=== PATIENT | female | born 1990 | race Caucasian/White ===

== ENCOUNTER 2016-07-08 17:13 | Emergency (ER) | payer MEDICAID, OTHER ==
[2016-07-08] MEDS ORDERED: NS 0.9% 1000 ML* 1,000 ML IV ONE (17:55)
[2016-07-08] MEDS ORDERED: diPHENhydraMINE IV* 50 MG/ML 1 ml VIAL (BENADRYL) IV ONE (17:55)
[2016-07-08] MEDS ORDERED: Metoclopramide IV* 5 MG/ML 2 ML VIAL IV ONE (17:55)
[2016-07-08 18:04] LABS: Hematocrit 33 % (35-47); Hemoglobin 11.3 g/dl (12.0-16.0); Mean Corpuscular HGB Conc 34 g/dl (31-36); Mean Corpuscular Hemoglobin 30 pg (27-31); Mean Corpuscular Volume 88 fL (80-97); Mean Platelet Volume 8 um3 (7.4-10.4); Red Blood Count 3.77 10^6/ul (4.0-5.4); Red Cell Distribution Width 13 % (10.5-15); White Blood Count 8.2 10^3/ul (3.5-10.8)
[2016-07-08 18:15] LABS: Albumin 3.9 g/dL (3.2-5.2); BUN/Creatinine Ratio 21.2 (8-20); Calcium 9.3 mg/dL (8.6-10.3); EGFR African American 184.8 (>60); EGFR Non-African American 143.7 (>60); Globulin 2.9 g/dL (2-4); Potassium 3.3 mmol/L (3.5-5.0); Total Bilirubin 0.2 mg/dL (0.2-1.0); Total Protein 6.8 g/dL (6.4-8.9)
[2016-07-08 18:24] LABS: Urine Bacteria Absent (Absent); Urine Bilirubin Negative (Negative); Urine Glucose Negative (Negative); Urine Nitrite Negative (Negative)
[2016-07-08] MEDS ORDERED: Potassium Chlor TAB* 20 MEQ TAB.ER PO ONE (19:03)
[2016-07-08 20:05] VITALS: BP 132/68
--- NOTE | 2016-07-08 21:02 | ED ---
Dave Aguilar Billy, scribed for Yonatan Amato MD on 07/08/16 at 1748 . Headache - HPI Summary HPI Summary: Patient is a 25 year-old female coming to [facility] presenting with headache for the last 3 weeks. The pain has been intermittent until the last 2-3 days, when it has become a constant throbbing sensation, radiating to the neck. She has taken tylenol and one dose of ibuprofen with no improvement. She reports associated nausea without vomiting. Denies fevers, chills, blurred vision. She is 3 months ; denies any abnormal vaginal discharge or bleeding. She has a history of migraine headaches during . - History Of Current Complaint Chief Complaint: EDHeadache Stated Complaint: HEADACHE Time Seen by Provider: 07/08/16 17:45 Hx Obtained From: Patient Hx Last Menstrual Period: unknown Onset/Duration: Gradual Onset, Started weeks ago, Worse Since - last 2-3 days Initially Headache Was: Moderate Currently Pain Is: Moderate Timing: Constant - in the last 2-3 days, Intermittent, Lasting: - for 3 weeks Character: Throbbing Radiates to: neck Aggravating Factor: Nothing Allevating Factors: Nothing Associated Signs And Symptoms: Nausea, Neck Pain - Allergies/Home Medications Allergies/Adverse Reactions: Allergies Allergy/AdvReac Type Severity Reaction Status Date / Time No Known Allergies Allergy Verified 05/26/16 15:03 PMH/Surg Hx/FS Hx/Imm Hx Respiratory History: Reports: Hx Asthma Neurological History: Reports: Hx Migraine - during Infectious Disease History: No Infectious Disease History: Reports: Hx of Known/Suspected MRSA Denies: Traveled Outside the [place] in Last 30 Days - Family History Known Family History: Positive: Diabetes, Respiratory Disease - ASTHMA, Other - cancer - Social History Alcohol Use: Rare Hx Substance Use: No Substance Use Type: Reports: None Hx Tobacco Use: Yes Smoking Status (MU): Former Smoker Type: Cigarettes Amount Used/How Often: 1 pack per week Review of Systems Negative: Fever, Chills Negative: Blurred Vision Positive: Nausea. Negative: Vomiting Negative: discharge Positive: Other - RUIZ radiates to neck Positive: Headache All Other Systems Reviewed And Are Negative: Yes Physical Exam - Summary Physical Exam Summary: VITAL SIGNS: Reviewed. GENERAL: Patient is an obese female who is lying comfortable in the stretcher. Patient is not in any acute respiratory distress. HEAD AND FACE: No signs of trauma. No ecchymosis, hematomas or skull depressions. No sinus tenderness. EYES: PERRLA, EOMI x 2, No injected conjunctiva, no nystagmus. No photophobia. EARS: Hearing grossly intact. Ear canals and tympanic membranes are within normal limits. MOUTH: Oropharynx within normal limits. NECK: Supple, trachea is midline, no adenopathy, no JVD, no carotid bruit, no c- spine tenderness, neck with full ROM. No meningeal signs, no Kernig's or brudzinskis signs. CHEST: Symmetric, no tenderness at palpation LUNGS: Clear to auscultation bilaterally. No wheezing or crackles. CVS: Regular rate and rhythm, S1 and S2 present, no murmurs or gallops appreciated. ABDOMEN: Soft, non-tender. No signs of distention. No rebound no guarding, and no masses palpated. Bowel sounds are normal. EXTREMITIES: FROM in all major joints, no edema, no cyanosis or clubbing. NEURO: Alert and oriented x 3. No acute neurological deficits. Speech is normal and follows commands. SKIN: Dry and warm Triage Information Reviewed: Yes Vital Signs On Initial Exam: Initial Vitals Temp Pulse Resp BP Pulse Ox 97.5 F 94 20 137/69 100 07/08/16 17:15 07/08/16 17:15 07/08/16 17:15 07/08/16 17:15 07/08/16 17:15 Vital Signs Reviewed: Yes Diagnostics - Vital Signs Vital Signs Temp Pulse Resp BP Pulse Ox 07/08/16 17:15 97.5 F 94 20 137/69 100 - Laboratory Lab Results: Lab Results 07/08/16 07/08/16 07/08/16 Range/Units 17:42 17:42 18:08 WBC 8.2 (3.5-10.8) 10^3/ul RBC 3.77 L (4.0-5.4) 10^6/ul Hgb 11.3 L (12.0-16.0) g/dl Hct 33 L (35-47) % MCV 88 (80-97) fL MCH 30 (27-31) pg MCHC 34 (31-36) g/dl RDW 13 (10.5-15) % Plt Count 210 (150-450) 10^3/ul MPV 8 (7.4-10.4) um3 Neut % (Auto) 70.0 (38-83) % Lymph % (Auto) 24.2 L (25-47) % [place] % (Auto) 4.3 (1-9) % Eos % (Auto) 1.3 (0-6) % Baso % (Auto) 0.2 (0-2) % Absolute Neuts (auto) 5.7 (1.5-7.7) 10^3/ul Absolute Lymphs (auto) 2.0 (1.0-4.8) 10^3/ul Absolute Monos (auto) 0.4 (0-0.8) 10^3/ul Absolute Eos (auto) 0.1 (0-0.6) 10^3/ul Absolute Basos (auto) 0 (0-0.2) 10^3/ul Absolute Nucleated RBC 0.01 10^3/ul Nucleated RBC % 0.1 Sodium 135 (133-145) mmol/L Potassium 3.3 L (3.5-5.0) mmol/L Chloride 106 (101-111) mmol/L Carbon Dioxide 24 (22-32) mmol/L Anion Gap 5 (2-11) mmol/L BUN 11 (6-24) mg/dL Creatinine 0.52 (0.51-0.95) mg/dL Est GFR ( Amer) 184.8 (>60) Est GFR (Non-Af Amer) 143.7 (>60) BUN/Creatinine Ratio 21.2 H (8-20) Glucose 116 H (70-100) mg/dL Calcium 9.3 (8.6-10.3) mg/dL Total Bilirubin 0.20 (0.2-1.0) mg/dL AST 14 (13-39) U/L ALT 11 (7-52) U/L Alkaline Phosphatase 38 (34-104) U/L Total Protein 6.8 (6.4-8.9) g/dL Albumin 3.9 (3.2-5.2) g/dL Globulin 2.9 (2-4) g/dL Albumin/Globulin Ratio 1.3 (1-3) Urine Color Yellow Urine Appearance Clear Urine pH 6.0 (5-9) Ur Specific [place] 1.021 (1.010-1.030) Urine Protein Negative (Negative) Urine Ketones Trace H (Negative) Urine Blood Negative (Negative) Urine Nitrate Negative (Negative) Urine Bilirubin Negative (Negative) Urine Urobilinogen Negative (Negative) Ur Leukocyte Esterase Trace H (Negative) Urine WBC (Auto) Trace(0-5/hpf) (Absent) Urine RBC (Auto) Trace(0-2/hpf) (Absent) Ur Squamous Epith Cells Present H (Absent) Urine Bacteria Absent (Absent) Urine Glucose Negative (Negative) Urine Ascorbic Acid * H (Negative) Result Diagrams: 07/08/16 17:42 07/08/16 17:42 Lab Statement: Any lab studies that have been ordered have been reviewed, and results considered in the medical decision making process. Re-Evaluation - Re-Evaluation First Eval Re-Evaluation Time: 19:42 Change: Improved Comment: No longer nauseated, RUIZ 1/10. Headache Course/Dx - Course Assessment/Plan: Patient is a 25 year-old female coming [place] [facility] presenting with headache for the last 3 weeks. The pain has been intermittent until the last 2-3 days, when it has become a constant throbbing sensation, radiating to the neck. She has taken tylenol and one dose of ibuprofen with no improvement. She reports associated nausea without vomiting. Denies fevers, chills, blurred vision. She is 3 months ; denies any abnormal vaginal discharge or bleeding. She has a history of migraine headaches during . Bloodwork WNL except for mild anemia, possibly secondary to her , hypokalemia for 3.3, she was given potassium chloride. She was also given IV fluids, Reglan , and Benadryl for migraine RUIZ. After these medications, her symptoms have improved. She is no longer nauseous and RUIZ is only 1/10. Since she is feeling better, she will be dc home to f/u with PCP. She was instructed to continue with Benadryl and Tylenol if she has migraine, continue to have increased intake from water, and to sleep between 8-9 hours a night. She understands and agrees. Therefore she will be discharged home to follow up with PCP. - Diagnoses Differential Diagnosis/HQI/PQRI: Migraine, Sinus Headache, Tension Headache, Viral Syndrome Provider Diagnoses: Headache Discharge - Discharge Plan Condition: Stable Disposition: HOME Patient Education Materials: Migraine Headache (ED) Referrals: [facility] [Outside] The documentation as recorded by the Dave robins Billy accurately reflects the service I personally performed and the decisions made by me, Yonatan Amato MD.
== END 2016-07-08 20:04 | disposition home or self-care (01) ==
LOC: ED 17:13
DX: R51 Headache (principal); Z87.891 Personal history of nicotine dependence; J45.909 Unspecified asthma, uncomplicated; D64.9 Anemia, unspecified
CPT/HCPCS: 36415; 80053; 81003; 81015; 85025; 87086; 96360; 96365; 96374; 96375; 99282; A9270-GY; J1200; J2765

== ENCOUNTER 2016-08-18 12:27 | Emergency (ER) | payer OTHER ==
[2016-08-18 12:59] VITALS: BP 139/65
--- NOTE | 2016-08-18 14:15 | UC ---
FLU HPI - HPI Summary HPI Summary: FEVER, BODYACHES, CHILLS COUGH SINCE TODAY. EIGHT WEEKS 18WKS . SEEN BY PROGRAM ENGINEER AND SENT HERE. - History of Current Complaint Chief Complaint: UCRespiratory Stated Complaint: FEVER 18 WEEKS PREG Time Seen by Provider: 08/18/16 13:10 Hx Obtained From: Patient, Family/Pole Climber Hx Last Menstrual Period: EDC 01/19/17 Onset/Duration: Sudden Onset, Lasting Hours, Still Present Severity Currently: Mild Severity Initially: Mild Pain Intensity: 0 Pain Scale Used: 0-10 Numeric Associated Signs & Symptoms: Positive: F/C, Myalgia Related Hx: Possible Flu/Infectious Exposure - Allergy/Home Medications Allergies/Adverse Reactions: Allergies Allergy/AdvReac Type Severity Reaction Status Date / Time No Known Allergies Allergy Verified 08/18/16 12:59 PMH/Surg Hx/FS Hx/Imm Hx Previously Healthy: Yes Respiratory History Of: Reports: Asthma Neurological History Of: Reports: Migraine - during - Surgical History Surgical History: None - Family History Known Family History: Positive: Diabetes, Respiratory Disease - ASTHMA, Other - cancer - Social History Occupation: Employed Full-time, Student Lives: With Family Alcohol Use: None Substance Use Type: None Smoking Status (MU): Former Smoker Type: Cigarettes Amount Used/How Often: 1 pack per week Household Exposure Type: Cigarettes - Immunization History Most Recent Influenza Vaccination: 04/17/15 Most Recent Tetanus Shot: 06/09/15 Most Recent Pneumonia Vaccination: none Review of Systems Constitutional: Fever, Chills Skin: Negative Eyes: Negative ENT: Negative Respiratory: Negative Cardiovascular: Negative Gastrointestinal: Negative Genitourinary: Negative Motor: Negative Neurovascular: Negative Musculoskeletal: Myalgia Neurological: Negative Psychological: Negative All Other Systems Reviewed And Are Negative: Yes Physical Exam Triage Information Reviewed: Yes Appearance: No Pain Distress, Well-Nourished, Ill-Appearing - MILD Vital Signs: Initial Vital Signs Temp 100.6 F 08/18/16 12:55 Pulse 111 08/18/16 12:55 Resp 16 08/18/16 12:55 BP 139/65 08/18/16 12:55 Pulse Ox 96 08/18/16 12:55 Vital Signs Reviewed: Yes Eye Exam: Normal ENT Exam: Normal ENT: Positive: Normal ENT inspection, Hearing grossly normal, Pharynx normal, TMs normal Dental Exam: Normal Neck exam: Normal Neck: Positive: Supple, Nontender, No Lymphadenopathy Respiratory Exam: Normal Respiratory: Positive: Chest non-tender, Lungs clear, Normal breath sounds, No respiratory distress, No accessory muscle use Cardiovascular Exam: Normal Cardiovascular: Positive: RRR, No Murmur, Pulses Normal, Brisk Capillary Refill Abdominal Exam: Normal Abdomen Description: Positive: Nontender, No Organomegaly Musculoskeletal Exam: Normal Musculoskeletal: Positive: Strength Intact, ROM Intact Neurological Exam: Normal Psychological Exam: Normal Psychological: Positive: Normal Response To Family Skin Exam: Normal Flu Course/Dx - Course Course Of Treatment: FLU SWAB A & B ARE NEGATIVE IN OFFICE; NO TAMIFLU DISPENSED DUE TO CATEGORY C; DISCUSSED THIS WITH PATIENT. ADVISED TO FOLLOW UP WITH ED IF SYMPTOMS CONTINUE, WORSEN, OR IF NEW SYMPTOMS DEVELOP. - Differential Dx/Diagnosis Differential Diagnosis/HQI/PQRI: Broncholiolitis, Influenza, Upper Respiratory Infection Provider Diagnoses: VIRAL SYNDROME Discharge - Discharge Plan Condition: Stable Disposition: HOME Patient Education Materials: Viral Syndrome (ED) Forms: *School Release, *Work Release Referrals: [facility] [Outside] No Primary Care Phys,NOPCP [Primary Care Provider] - Additional Instructions: IF SYMPTOMS WORSEN OR IF NEW SYMPTOMS DEVELOP PLEASE SEEK EVALUATION AT EMERGENCY DEPARTMENT.
== END 2016-08-18 13:44 | disposition home or self-care (01) ==
LOC: UCEAST 12:27
DX: O98.512 Other viral diseases complicating pregnancy, second trimester (principal); B34.9 Viral infection, unspecified; Z3A.18 18 weeks gestation of pregnancy; Z87.891 Personal history of nicotine dependence
CPT/HCPCS: 87502; 99211; G0463

== ENCOUNTER 2016-10-03 08:32 | Emergency (ER) | payer OTHER ==
[2016-10-03 10:01] LABS: Hematocrit 31 % (35-47); Hemoglobin 10.6 g/dl (12.0-16.0); Mean Corpuscular HGB Conc 35 g/dl (31-36); Mean Corpuscular Hemoglobin 31 pg (27-31); Mean Corpuscular Volume 88 fL (80-97); Mean Platelet Volume 8 um3 (7.4-10.4); Red Blood Count 3.46 10^6/ul (4.0-5.4); Red Cell Distribution Width 14 % (10.5-15); White Blood Count 6.6 10^3/ul (3.5-10.8)
[2016-10-03 10:11] LABS: Albumin 3.4 g/dL (3.2-5.2); BUN/Creatinine Ratio 14.3 (8-20); C Reactive Protein 20.35 mg/L (< 5.00); Calcium 8.6 mg/dL (8.6-10.3); EGFR African American 196.3 (>60); EGFR Non-African American 152.7 (>60); Globulin 2.8 g/dL (2-4); Potassium 3.4 mmol/L (3.5-5.0); Total Bilirubin 0.2 mg/dL (0.2-1.0); Total Protein 6.2 g/dL (6.4-8.9)
[2016-10-03 11:21] VITALS: BP 109/64
--- NOTE | 2016-10-04 23:05 | ED ---
Brendan Aguilar Adam, scribed for Steve Vance MD on 10/03/16 at 0901 . HPI Chest Pain - HPI Summary HPI Summary: Pt is a 26 year old female presenting with chest pain. She states that it is not severe but she wants to make sure everything is ok. It is a throbbing pain located in upper left region of her chest. The pain is triggered by sitting up or standing up. When she is lying flat she has no pain, and movement of her extremities does not aggravate the pain. Over the weekend the pt had a 24 -48 hour syndrome of vomiting and diarrhea which is now resolved. She denies fever and spotting. She is 24 weeks into her and states that it has been progressing normally. - History of Current Complaint Chief Complaint: EDChestPainROMI Time Seen by Provider: 10/03/16 08:55 Hx Obtained From: Patient Onset/Duration: Started Hours Ago, Atraumatic, Still Present Timing: Intermittent Initial Severity: Moderate Current Severity: Mild Pain Intensity: 4 Pain Scale Used: 0-10 Numeric Chest Pain Location: Left Anterior Chest Pain Radiates: No Character: Other: - Throbbing Aggravating Factor(s): Position - Sitting up and standing up Alleviating Factor(s): Position - Lying flat Associated Signs and Symptoms: Positive: Negative. Negative: Fever - Allergy/Home Medications Allergies/Adverse Reactions: Allergies Allergy/AdvReac Type Severity Reaction Status Date / Time No Known Allergies Allergy Verified 10/03/16 09:02 PMH/Surg Hx/FS Hx/Imm Hx Respiratory History: Reports: Hx Asthma Neurological History: Reports: Hx Migraine - during Infectious Disease History: Reports: Hx of Known/Suspected MRSA Denies: Traveled Outside the [place] in Last 30 Days - Family History Known Family History: Positive: Diabetes, Respiratory Disease - ASTHMA, Other - cancer - Social History Lives: With Family - Mother Alcohol Use: None Hx Substance Use: No Substance Use Type: Reports: None Hx Tobacco Use: Yes Smoking Status (MU): Former Smoker Type: Cigarettes Amount Used/How Often: 1 pack per week Review of Systems Negative: Fever Positive: Chest Pain Genitourinary: Negative All Other Systems Reviewed And Are Negative: Yes Physical Exam - Summary Physical Exam Summary: heart tones approximately 150 with doppler ultrasound. Triage Information Reviewed: Yes Vital Signs On Initial Exam: Initial Vitals Temp Pulse Resp BP Pulse Ox 97.6 F 95 18 131/55 100 10/03/16 08:34 10/03/16 08:34 10/03/16 08:34 10/03/16 08:34 10/03/16 08:34 Vital Signs Reviewed: Yes Appearance: Positive: Well-Appearing, No Pain Distress Skin: Positive: Warm, Skin Color Reflects Adequate Perfusion, Dry Head/Face: Positive: Normal Head/Face Inspection Eyes: Positive: Normal ENT: Positive: Normal ENT inspection Neck: Positive: Supple, Nontender Respiratory/Lung Sounds: Positive: Clear to Auscultation, Breath Sounds Present Cardiovascular: Positive: RRR Abdomen Description: Positive: Nontender, Soft, Other: - FHT's were about 150 with doppler. Bowel Sounds: Positive: Present Musculoskeletal: Positive: Normal Neurological: Positive: Normal Psychiatric: Positive: Affect/Mood Appropriate Diagnostics - Vital Signs Vital Signs Temp Pulse Resp BP Pulse Ox 10/03/16 08:52 21 10/03/16 08:34 97.6 F 95 18 131/55 100 - Laboratory Lab Results: Lab Results 10/03/16 10/03/16 Range/Units 09:26 09:26 WBC 6.6 (3.5-10.8) 10^3/ul RBC 3.46 L (4.0-5.4) 10^6/ul Hgb 10.6 L (12.0-16.0) g/dl Hct 31 L (35-47) % MCV 88 (80-97) fL MCH 31 (27-31) pg MCHC 35 (31-36) g/dl RDW 14 (10.5-15) % Plt Count 184 (150-450) 10^3/ul MPV 8 (7.4-10.4) um3 Neut % (Auto) 71.3 (38-83) % Lymph % (Auto) 17.9 L (25-47) % [place] % (Auto) 8.7 (1-9) % Eos % (Auto) 1.8 (0-6) % Baso % (Auto) 0.3 (0-2) % Absolute Neuts (auto) 4.7 (1.5-7.7) 10^3/ul Absolute Lymphs (auto) 1.2 (1.0-4.8) 10^3/ul Absolute Monos (auto) 0.6 (0-0.8) 10^3/ul Absolute Eos (auto) 0.1 (0-0.6) 10^3/ul Absolute Basos (auto) 0 (0-0.2) 10^3/ul Absolute Nucleated RBC 0 10^3/ul Nucleated RBC % 0 Sodium 136 (133-145) mmol/L Potassium 3.4 L (3.5-5.0) mmol/L Chloride 105 (101-111) mmol/L Carbon Dioxide 25 (22-32) mmol/L Anion Gap 6 (2-11) mmol/L BUN 7 (6-24) mg/dL Creatinine 0.49 L (0.51-0.95) mg/dL Est GFR ( Amer) 196.3 (>60) Est GFR (Non-Af Amer) 152.7 (>60) BUN/Creatinine Ratio 14.3 (8-20) Glucose 87 (70-100) mg/dL Calcium 8.6 (8.6-10.3) mg/dL Total Bilirubin 0.20 (0.2-1.0) mg/dL AST 15 (13-39) U/L ALT 8 (7-52) U/L Alkaline Phosphatase 42 (34-104) U/L Troponin I 0.00 (<0.04) ng/mL C-Reactive Protein 20.35 H (< 5.00) mg/L Total Protein 6.2 L (6.4-8.9) g/dL Albumin 3.4 (3.2-5.2) g/dL Globulin 2.8 (2-4) g/dL Albumin/Globulin Ratio 1.2 (1-3) Result Diagrams: 10/03/16 09:26 10/03/16 09:26 Lab Statement: Any lab studies that have been ordered have been reviewed, and results considered in the medical decision making process. - EKG 08:44 Cardiac Rate: NL - 93 BPM EKG Rhythm: Sinus Rhythm - Normal - Additional Comments Diagnostic Additional Comments: Troponin I - 0.00 Chest Pain Course/Dx - Course Course Of Treatment: I think this represents a radicular pain. Her W/U was otherwise unremarkable. - Diagnoses Provider Diagnoses: Cervical radiculopathy Discharge - Discharge Plan Condition: Stable Disposition: HOME Patient Education Materials: Cervical Radiculopathy (ED) Referrals: [facility] [Outside] Additional Instructions: Follow up with your Primary Care Provider. Use the [facility] if needed. The documentation as recorded by the Brendan robins Adam accurately reflects the service I personally performed and the decisions made by me, Steve Vance MD.
== END 2016-10-03 11:46 | disposition home or self-care (01) ==
LOC: ED 08:32
DX: M54.12 Radiculopathy, cervical region (principal); R07.9 Chest pain, unspecified; Z87.891 Personal history of nicotine dependence
CPT/HCPCS: 36415; 80053; 84484; 85025; 86140; 93005; 99283

== ENCOUNTER 2016-12-16 09:01 | Emergency (ER) | payer OTHER ==
[2016-12-16 09:31] VITALS: BP 103/99
--- NOTE | 2016-12-16 09:38 | UC ---
Katie Aguilar Salem, scribed for Daisy Montanez MD on 12/16/16 at 0924 . Lower Extremity/Ankle HPI - HPI Summary HPI Summary: Patient is a 26 y/o F who presents to the with injury to left ankle and pain to "top of foot" since yesterday. She states that her foot rolled in while she was carrying her son, but she did not fall (she was wearing flip-flops). She denies numbness or tingling, but reports edema, pain with dorsiextension, and limping. She also denies any pain in her knee or hip. No other injures. She states that she iced injury yesterday, but did not take any medication for pain. She denies any previous injuries to extremity. Pt is and due in 1 month. Pt works on her feet. No ecchymosis. no open wounds. Walking with slight limp in flip flops Patients medication reviewed this visit. - History of Current Complaint Chief Complaint: UCLowerExtremity Stated Complaint: ANKLE INJURY Time Seen by Provider: 12/16/16 09:12 Hx Obtained From: Patient Hx Last Menstrual Period: 03/26/16 ?: Yes Onset/Duration: Gradual Onset, Lasting Days, Still Present Severity Initially: Moderate Severity Currently: Moderate Pain Intensity: 5 Pain Scale Used: 0-10 Numeric Aggravating Factor(s): Ambulation, Other - Dorsiflexion. Alleviating Factor(s): Rest Able to Bear Weight: Yes - Allergies/Home Medications Allergies/Adverse Reactions: Allergies Allergy/AdvReac Type Severity Reaction Status Date / Time No Known Allergies Allergy Verified 10/03/16 09:02 PMH/Surg Hx/FS Hx/Imm Hx Previously Healthy: Yes - Surgical History Surgical History: None - Family History Known Family History: Positive: Diabetes, Respiratory Disease - ASTHMA, Other - cancer - Social History Occupation: Employed Full-time - housekeeping/laundry supervisor Alcohol Use: None Substance Use Type: None Smoking Status (MU): Former Smoker Type: Cigarettes Amount Used/How Often: 1 pack per week Household Exposure Type: Cigarettes - Immunization History Most Recent Influenza Vaccination: 04/17/15 Most Recent Tetanus Shot: 06/09/15 Most Recent Pneumonia Vaccination: none Review of Systems Constitutional: Negative Musculoskeletal: Other: - Left ankle injury: edema and pain. No knee or hip pain. Neurological: Negative - No numbness or tingling. All Other Systems Reviewed And Are Negative: Yes Physical Exam Triage Information Reviewed: Yes Appearance: Well-Appearing, No Pain Distress, Well-Nourished Vital Signs: Initial Vital Signs Temp 98 F 12/16/16 09:05 Pulse 99 12/16/16 09:05 Resp 16 12/16/16 09:05 BP 103/99 12/16/16 09:05 Pulse Ox 99 12/16/16 09:05 Eyes: Negative: Discharge ENT: Positive: Hearing grossly normal Neck: Positive: Supple. Negative: Nuchal Rigidity Respiratory: Positive: No respiratory distress, No accessory muscle use. Negative: Respiratory distress Cardiovascular: Positive: Other: - 2+ DP, PT CBT <2 sec Abdomen Description: Positive: Other: - gravid Musculoskeletal: Positive: Other: - + SLE + flex/ext knee + flex/ext ankle with dorsiextension + mild TTP inferior aspect lateral malleolus left minimal discomfort inferior aspect medial malleolus left No pain achilles No pain tarsals, metatarsals, phalanges No ecchymosis, abrasions mild edema lateral mallelous No crepitus no pain along tib/fib Neurological: Positive: Alert, Other: - + sensation throughout foot Psychological Exam: Normal Skin Exam: Normal Lower Extremity Course/Dx - Course Course Of Treatment: Pt with mild left ankle pain s/p inversion injury yesterday. Pt is 8 months and declining imaing. Pt well appearing with minimal discomfort on exam. will place rayna, crutches, air splint. good support shoes. ice. elevate. APAP. recommend movement toes and ankle. if ongoing pain after period of rest - may require imaging. pt comfortable and in agreement with plan. late for work note written - Differential Dx/Diagnosis Provider Diagnoses: ankle injury, left Discharge - Discharge Plan Condition: Stable Disposition: HOME Patient Education Materials: Ankle Sprain (ED) Forms: *Work Release Referrals: No Primary Care Phys,NOPCP [Primary Care Provider] - Additional Instructions: - Okay to take tylenol 3 time a day for pain. Do NOT take Non-steroidal anti- inflammatory medications (Motrin, Advil, Ibuprofen, Naprosyn, Naproxyn, Aleve, etc) - Wear rayna wrap and air splint for support - Elevate your foot to help with swelling and pain - Okay to apply ice (Wrapped in a towel) 20 minutes at a time, 2-3 times a day - Wear shoes with good support - If you continue to have pain, you may require and xray to check for fracture ( broken bone) - Use crutches until you can walk without a limp Call your doctor or return with questions or concerns The documentation as recorded by the Katie robins Salem accurately reflects the service I personally performed and the decisions made by me, Daisy Montanez MD.
== END 2016-12-16 09:40 | disposition home or self-care (01) ==
LOC: UCEAST 09:01
DX: O26.893 Other specified pregnancy related conditions, third trimester (principal); S99.912A Unspecified injury of left ankle, initial encounter; Z3A.00 Weeks of gestation of pregnancy not specified; X50.1XXA Overexertion from prolonged static or awkward postures, initial encounter; Y93.9 Activity, unspecified; Y92.9 Unspecified place or not applicable; Z87.891 Personal history of nicotine dependence
CPT/HCPCS: 99213; G0463

== ENCOUNTER 2017-01-18 11:19 | Inpatient (IN) | payer OTHER ==
[2017-01-18] MEDS ORDERED: Oxytocin in LR* 20 UNITS/1,000 ML BAG IVPB SCH (12:00)
[2017-01-18 12:26] LABS: Hematocrit 34 % (35-47); Hemoglobin 11.5 g/dl (12.0-16.0); Mean Corpuscular HGB Conc 34 g/dl (31-36); Mean Corpuscular Hemoglobin 30 pg (27-31); Mean Corpuscular Volume 90 fL (80-97); Mean Platelet Volume 8 um3 (7.4-10.4); Red Blood Count 3.81 10^6/ul (4.0-5.4); Red Cell Distribution Width 14 % (10.5-15); White Blood Count 9.4 10^3/ul (3.5-10.8)
[2017-01-18] MEDS ORDERED: OBEPIDURAL* 250 ML ONE (19:53)
[2017-01-18] MEDS ORDERED: Albuterol HFA INHALER* 8 gm MDI INH PRN (21:20)
[2017-01-19] MEDS ORDERED: Famotidine TAB* 20 MG PO PRN (00:16)
[2017-01-19] MEDS ORDERED: Sodium Citrate/Citric Acid* 15 ML UDC PO PRN (00:16)
[2017-01-19] MEDS ORDERED: Phenylephrine IV* 40 MCG/ML 10 ML SYRINGE IV PUSH PRN ×2 (00:16)
[2017-01-19] MEDS ORDERED: OBEPIDURAL* 250 ML EPIDURAL SCH (01:00)
[2017-01-19] MEDS ORDERED: RHO D Immune Globulin (HUMAN)* 300 MCG = 1,500 I.U. INJ IM ONE (01:07)
[2017-01-19] MEDS ORDERED: Witch Hazel PAD* JAR TOPICAL PRN (01:07)
[2017-01-19] MEDS ORDERED: Glycerin ADULT SUPP PR PRN (01:07)
[2017-01-19] MEDS ORDERED: Dibucaine 1% 28.35 GM TUBE PR PRN (01:07)
[2017-01-19] MEDS ORDERED: Oxytocin in LR* 20 UNITS/1,000 ML BAG IVPB SCH (02:00)
[2017-01-19] MEDS: Ibuprofen TAB* 600 MG PO PRN ×4 (03:06→21:45)
[2017-01-19] MEDS: Acetaminophen TAB* 325 MG PO PRN ×2 (07:43→19:50)
[2017-01-19] MEDS ORDERED: Simethicone CHEW TAB* 80 MG PO SCH (08:30)
[2017-01-19] MEDS: Docusate CAP* 100 MG PO SCH ×3 (08:54→21:45)
[2017-01-20] MEDS: Ibuprofen TAB* 600 MG PO PRN ×2 (05:52→12:08)
[2017-01-20 07:07] LABS: Hematocrit 28 % (35-47); Hemoglobin 9.5 g/dl (12.0-16.0); Mean Corpuscular HGB Conc 34 g/dl (31-36); Mean Corpuscular Hemoglobin 30 pg (27-31); Mean Corpuscular Volume 91 fL (80-97); Mean Platelet Volume 9 um3 (7.4-10.4); Red Blood Count 3.14 10^6/ul (4.0-5.4); Red Cell Distribution Width 15 % (10.5-15); White Blood Count 7.5 10^3/ul (3.5-10.8)
[2017-01-20] MEDS ORDERED: Ferrous Gluconate TAB* 324 MG TAB PO SCH (09:00)
[2017-01-20 09:17] VITALS: BP 129/78
[2017-01-20] MEDS: Docusate CAP* 100 MG PO SCH (11:00)
== END 2017-01-20 13:24 | disposition home or self-care (01) | DRG 560 ==
LOC: MCHOBOUT 11:19 → MCHOB 11:20
PROVIDERS: ADMIT Midwife; ATTEND Midwife
PROC: 4A1HX4Z Monitoring of Products of Conception, Cardiac Electrical Activity, External Approach (ICD-10-PCS; principal; 2017-01-18)
PROC: 10907ZC Drainage of Amniotic Fluid, Therapeutic from Products of Conception, Via Natural or Artificial Opening (ICD-10-PCS; 2017-01-18)
PROC: 3E033VJ Introduction of Other Hormone into Peripheral Vein, Percutaneous Approach (ICD-10-PCS; 2017-01-18)
PROC: 10E0XZZ Delivery of Products of Conception, External Approach (ICD-10-PCS; 2017-01-18)
DX: O48.0 Post-term pregnancy (principal); O90.81 Anemia of the puerperium
CPT/HCPCS: 36415; 85025; 85461; 86850; 86870; 86880; 86900; 86901; A9270-GY; J2790

== ENCOUNTER 2017-04-06 06:04 | Day surgery (SDC) | payer OTHER ==
[~2017-04-06 06:04] MED LIST: Buffered Lidocaine 0.9% SYRIN* 5 ML/SYR SYRINGE INTRADERM ONE; Famotidine IV* 10 MG/ML 2 ML (20 mg) IV ONE; Metoclopramide TAB* 10 MG PO ONE
[2017-04-06] MEDS ORDERED: Famotidine IV* 10 MG/ML 2 ML (20 mg) ONE (06:15)
[2017-04-06] MEDS ORDERED: Metoclopramide TAB* 10 MG ONE (06:15)
[2017-04-06] MEDS ORDERED: Buffered Lidocaine 0.9% SYRIN* 5 ML/SYR SYRINGE ONE (06:15)
[2017-04-06] MEDS ORDERED: Bupivacaine 0.25% SDV* 30 ML ONE (07:21)
[2017-04-06] MEDS ORDERED: Bupivacaine 0.5% SDV PF* 30 ML VIAL ONE (07:21)
[2017-04-06] MEDS ORDERED: Midazolam* 1 MG/ML 5 ML VIAL (5 MG) ONE (07:28)
[2017-04-06] MEDS ORDERED: Ketorolac INJ* 30 MG/ML 1 ML VIAL ONE (07:28)
[2017-04-06] MEDS ORDERED: KETAMINE HCL* 50 MG/ML 10 ML VIAL ONE (07:28)
[2017-04-06] MEDS ORDERED: Ondansetron INJ* 2 MG/ML VIAL ONE (07:28)
[2017-04-06] MEDS ORDERED: Dexamethasone IV* 4 MG/ML 1 ML (4 MG) ONE (07:28)
[2017-04-06] MEDS ORDERED: Cisatracurium* 2 MG/ML MDV 5 ML ONE (07:28)
[2017-04-06] MEDS ORDERED: Lidocaine 2% PF * 5 ML VIAL ONE (07:28)
[2017-04-06] MEDS ORDERED: Propofol* 10 MG/ML 20 ML BTL IV PUSH ONE (07:28)
[2017-04-06] MEDS ORDERED: fentaNYL* 50 MCG/ML 2 ML VIAL (100 MCG VIAL) ONE ×2 (07:28→08:33)
[2017-04-06] MEDS ORDERED: Lidocaine 1% MPF wEPI 200,000* 30 ML SDV ONE (07:33)
[2017-04-06] MEDS ORDERED: Mivacurium Chloride* 20 MG/10 ML VIAL IV ONE (08:18)
[2017-04-06] MEDS ORDERED: Ondansetron INJ* 2 MG/ML VIAL IV PRN (08:36)
[2017-04-06] MEDS ORDERED: Levalbuterol 0.63MG/3ML NEB* UNIT OF USE INH PRN (08:36)
[2017-04-06] MEDS ORDERED: fentaNYL* 50 MCG/ML 2 ML VIAL (100 MCG VIAL) IV PRN (08:36)
[2017-04-06] MEDS ORDERED: oxyCODONE/Acetamin 5/325 MG* TAB PO PRN (08:36)
[2017-04-06 09:50] VITALS: BP 127/78
--- NOTE | 2017-04-06 11:33 | OP ---
DATE OF OPERATION: 04/06/17 [facility] DATE OF : [birth year] SURGEON: Jersey Mcduffie MD ANESTHESIOLOGIST: Jadon Del Rosario MD ANESTHESIA: General endotracheal tube. PRE-OP DIAGNOSES: Desires permanent sterilization and removal of Nexplanon. POST-OP DIAGNOSES: Desires permanent sterilization and removal of Nexplanon. OPERATIVE PROCEDURE: Laparoscopic bilateral tubal ligation and removal of Nexplanon. COMPLICATIONS: None. FINDINGS: On laparoscopy, the anterior bladder flap appeared normal. The uterus appeared normal. The right ovary appeared normal. Both tubes appeared normal. The appendix and liver surface were smooth. DESCRIPTION OF PROCEDURE: The patient identified, procedure identified as laparoscopic bilateral tubal ligation. The patient was taken to the operating room, prepped and draped in the usual fashion in dorsal lithotomy position under general anesthesia. A sponge and stick was placed in vagina for insufflation. A small infraumbilical incision was made and a Veress needle was inserted through this. The abdomen was insufflated to 15 mmHg. The Veress needle was removed and the trocar was inserted. Using the Visiport, trocar was removed from the sheath and laparoscope was inserted and above findings were noted. A second incision was made 2 cm above the pubic symphysis in the midline and a trocar was inserted under direct visualization. The right fallopian tube was grasped at the mid portion, followed out to its fimbriated end and fulgurated x3. Care taken to fulgurate the fimbria. Same procedure was carried out on the left after following out to its fimbriated end. Good hemostasis was verified. All instruments were removed from the abdomen. The abdomen was deflated of CO2. The skin was closed with Dermabond. The left arm was then prepped over the Nexplanon site and was draped. A small incision was made over the Nexplanon and dissected down until the capsule was noted. Capsule was grabbed with a hemostat. It was shaved until the actual Nexplanon was visualized and was able to be removed. 1% lidocaine with epi was injected into the site at the end of the procedure for anesthesia. The skin was closed over with again Dermabond and covered with Telfa and then wrapped in Kerlix. The patient returned to recovery room in stable condition. All sponge and instrument counts were correct. [id number]/[facility] #: [id number] [facility]
== END 2017-04-06 10:01 | disposition home or self-care (01) ==
LOC: OR 06:04
PROVIDERS: ATTEND Obstetrics & Gynecology
DX: Z30.2 Encounter for sterilization (principal); Z30.46 Encounter for surveillance of implantable subdermal contraceptive; F17.200 Nicotine dependence, unspecified, uncomplicated; J45.909 Unspecified asthma, uncomplicated
CPT/HCPCS: 81025; A9270-GY; J1100; J1885; J2001; J2250; J2405; J2704; J3010

== ENCOUNTER 2017-05-25 12:37 | Emergency (ER) | payer SELFPAY ==
[2017-05-25 12:52] VITALS: BP 112/58
--- NOTE | 2017-05-25 14:13 | UC ---
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 , lifting pushing and pulling - History of Current Complaint Chief Complaint: UCBackPain Stated Complaint: BACK PAIN Time Seen by Provider: 05/25/17 13:56 Hx Obtained From: Patient Hx Last Menstrual Period: 04/29/17 ?: No Onset/Duration: Gradual Onset, Lasting Days, Still Present Timing: Constant Severity Initially: Moderate Severity Currently: Moderate Pain Intensity: 6 - at night sometimes she cannot sleep Pain Scale Used: 0-10 Numeric Back Pain: Is Discrete @ Character: Aching, Stiffness Aggravating Factor(s): Movement, Bending Alleviating Factor(s): Rest, Position Associated Signs And Symptoms: Positive: Negative - Allergies/Home Medications Allergies/Adverse Reactions: Allergies Allergy/AdvReac Type Severity Reaction Status Date / Time No Known Allergies Allergy Verified 05/25/17 12:52 PMH/Surg Hx/FS Hx/Imm Hx Previously Healthy: Yes - Surgical History Surgical History: None Surgery Procedure, Year, and Place: Tubal Ligation - Family History Known Family History: Positive: Diabetes, Respiratory Disease - ASTHMA, Other - cancer - Social History Occupation: Employed Full-time Lives: With Family Alcohol Use: Occasionally Alcohol Amount: reports one glass wine on weekend Substance Use Type: None Smoking Status (MU): Former Smoker Type: Cigarettes Amount Used/How Often: reports 2 cigs per week (socially) Household Exposure Type: Cigarettes - Immunization History Most Recent Influenza Vaccination: 07/2016 Most Recent Tetanus Shot: 06/09/15 Most Recent Pneumonia Vaccination: none Review of Systems Constitutional: Negative Skin: Negative Eyes: Negative ENT: Negative Respiratory: Negative Cardiovascular: Negative Gastrointestinal: Negative Genitourinary: Negative Motor: Negative Neurovascular: Negative Musculoskeletal: Negative - SI joints R>L, Arthralgia Neurological: Negative Psychological: Negative Is Patient Immunocompromised?: No All Other Systems Reviewed And Are Negative: Yes Physical Exam Triage Information Reviewed: Yes Appearance: Well-Appearing, No Pain Distress, Well-Nourished Vital Signs: Initial Vital Signs Temp 97.0 F 05/25/17 12:48 Pulse 82 05/25/17 12:48 Resp 18 05/25/17 12:48 BP 112/58 05/25/17 12:48 Pulse Ox 99 05/25/17 12:48 Vital Signs Reviewed: Yes Eye Exam: Normal Eyes: Positive: Conjunctiva Clear ENT Exam: Normal ENT: Positive: Normal ENT inspection, Hearing grossly normal, Pharynx normal. Negative: Muffled voice, Hoarse voice Dental Exam: Normal Neck exam: Normal Neck: Positive: Supple, Nontender Respiratory Exam: Normal Respiratory: Positive: Chest non-tender, Lungs clear, Normal breath sounds, No respiratory distress, No accessory muscle use Cardiovascular Exam: Normal Cardiovascular: Positive: RRR, Pulses Normal, Brisk Capillary Refill Abdomen Description: Negative: CVA Tenderness (R), CVA Tenderness (L) Musculoskeletal Exam: Normal Musculoskeletal: Positive: Strength Intact, No Edema, ROM Limited @ - lower back ,twisting Neurological Exam: Normal Psychological Exam: Normal Skin Exam: Normal Back Pain Course/Dx - Course Course Of Treatment: Gentle back and conditioning exercises, pain med follow with pcp - Differential Dx/Diagnosis Provider Diagnoses: Low back pain, sciatic pain Discharge - Discharge Plan Condition: Stable Disposition: HOME Prescriptions: Cyclobenzaprine TAB* [Flexeril 10 MG TAB*] 10 mg PO TID PRN #15 tab PRN Reason: muscle tightness Cyclobenzaprine TAB* [Flexeril 10 MG TAB*] 10 mg PO TID PRN #15 tab PRN Reason: muscle spasm Naproxen [Naproxen 500 mg] 500 mg PO Q12H PRN #28 tab PRN Reason: pain Naproxen [Naproxen 500 mg] 500 mg PO Q12H PRN #28 tab PRN Reason: pain Tramadol HCl [Ultram] 50 mg PO Q8H PRN #20 tab MDD 3 PRN Reason: Pain Tramadol HCl [Ultram] 50 mg PO Q8H PRN #20 tab MDD 3 PRN Reason: pain Patient Education Materials: Sciatica (ED), Core Strengthening Exercises (GEN) , Lower Back Exercises (ED) Forms: *Work Release Referrals: [facility] [place] [facility]IAN REFERRAL [Outside] - 4 Days
== END 2017-05-25 14:32 | disposition home or self-care (01) ==
LOC: UCEAST 12:37
DX: M54.42 Lumbago with sciatica, left side (principal); M54.41 Lumbago with sciatica, right side; Z72.89 Other problems related to lifestyle; Z87.891 Personal history of nicotine dependence
CPT/HCPCS: 99212; G0463

== ENCOUNTER 2017-07-27 10:31 | Emergency (ER) | payer MEDICAID, OTHER ==
[2017-07-27] MEDS ORDERED: Dexamethasone Oral Solution* 1 MG/ML 10 ML UDC (10 MG) PO ONE (12:19)
[2017-07-27 13:02] VITALS: BP 115/70
--- NOTE | 2017-07-27 14:04 | ED ---
Throat Pain/Nasal Congestion - HPI Summary HPI Summary: Patient is an otherwise healthy 26-year-old female who presents to the ED with bilateral throat pain, odynophagia and dysphagia 2 days. She denies any sick contacts. History of strep throat and states this feels similar. She denies any difficulty breathing. Denies fever but endorses some sweats beginning yesterday. Denies any abdominal pain, nausea, vomiting, headache, sinus pressure. She has not been on any antibiotics recently. On arrival strep swab obtained and Monospot obtained. Denies trismus, denies muffled voice. - History of Current Complaint Chief Complaint: EDThroatPain Time Seen by Provider: 07/27/17 11:25 Hx Obtained From: Patient Onset/Duration: Gradual Onset Severity: Moderate Associated Signs And Symptoms: Positive: Dysphagia - Epiglottits Risk Factors Epiglottis Risk Factors: Negative - Allergies/Home Medications Allergies/Adverse Reactions: Allergies Allergy/AdvReac Type Severity Reaction Status Date / Time No Known Allergies Allergy Verified 07/27/17 12:15 PMH/Surg Hx/FS Hx/Imm Hx Previously Healthy: Yes Respiratory History: Reports: Hx Asthma Neurological History: Reports: Hx Migraine - during - Surgical History Surgery Procedure, Year, and Place: Tubal Ligation Hx Anesthesia Reactions: No - never had surgery - Immunization History Hx Pertussis Vaccination: No Immunizations Up to Date: Unable to Obtain/Confirm Infectious Disease History: Yes Infectious Disease History: Denies: Hx Clostridium Difficile, Hx Hepatitis, Hx Human Immunodeficiency Virus (HIV), Hx of Known/Suspected MRSA, Hx Shingles, Hx Tuberculosis, Hx Known/ Suspected VRE, Hx Known/Suspected VRSA, History Other Infectious Disease, Traveled Outside the [place] in Last 30 Days - Family History Known Family History: Positive: Diabetes, Respiratory Disease - ASTHMA, Other - cancer - Social History Occupation: Employed Full-time Lives: With Family Alcohol Use: Occasionally Alcohol Amount: reports one glass wine on weekend Hx Substance Use: No Substance Use Type: Reports: None Hx Tobacco Use: Yes Smoking Status (MU): Former Smoker Type: Cigarettes Amount Used/How Often: reports 2 cigs per week (socially) Review of Systems Constitutional: Negative Negative: Fever, Chills, Fatigue Eyes: Negative Positive: Sore Throat Cardiovascular: Negative Respiratory: Negative Genitourinary: Negative Positive: no symptoms reported, see HPI Neurological: Negative All Other Systems Reviewed And Are Negative: Yes Physical Exam Triage Information Reviewed: Yes Vital Signs On Initial Exam: Initial Vitals Temp Pulse Resp BP Pulse Ox 98.1 F 103 18 125/66 98 07/27/17 10:39 07/27/17 10:39 07/27/17 10:39 07/27/17 10:39 07/27/17 10:39 Vital Signs Reviewed: Yes Appearance: Positive: Ill-Appearing Skin: Positive: Skin Color Reflects Adequate Perfusion Head/Face: Positive: Normal Head/Face Inspection Eyes: Positive: EOMI, JOSÉ LUIS, Conjunctiva Clear ENT: Positive: Pharyngeal erythema, TMs normal, Tonsillar swelling - Bilaterally , Tonsillar exudate - Bilaterally, Uvula midline. Negative: Nasal congestion, Nasal drainage, Trismus, Muffled voice, Hoarse voice, Dental tenderness, Sinus tenderness Neck: Positive: Supple, Enlarged Nodes @ - Bilateral cervical anterior Cardiovascular: Positive: Normal, RRR, Pulses are Symmetrical in both Upper and Lower Extremities Musculoskeletal: Positive: Strength/ROM Intact Neurological: Positive: Speech Normal Psychiatric: Positive: Normal, Affect/Mood Appropriate AVPU Assessment: Alert Diagnostics - Vital Signs Vital Signs Temp Pulse Resp BP Pulse Ox 07/27/17 13:01 98.9 F 100 20 115/70 97 07/27/17 10:39 98.1 F 103 18 125/66 98 - Laboratory Lab Results: Lab Results 07/27/17 07/27/17 07/27/17 Range/Units 12:10 12:12 12:43 Monoscreen Positive H (Negative) Influenza A (Rapid) Negative (Negative) Influenza B (Rapid) Negative (Negative) Group A Strep Rapid Negative (Negative) Lab Statement: Any lab studies that have been ordered have been reviewed, and results considered in the medical decision making process. EENT Course/Dx - Course Course Of Treatment: During the course of treatment the patient is evaluated for bilateral throat pain, odynophagia, dysphagia without difficulty breathing. History of strep throat. She is given Tylenol 650 mg for pain on arrival. On physical examination there is tonsillitis noted with tonsilloliths to the left tonsil with tonsillar exudate and erythema. Uvula is midline and no concern for peritonsillar or tonsillar abscess at this time. Due to dysphasia she is given dexamethasone 12 mg oral solution in the ED. She is given prescription for prednisone 50 mg once daily 5 days. Due to the tonsilloliths and tonsillar exudate she is given penicillin 500 mg twice daily 10 days for a bacterial component which is likely. She is to follow-up with Dr. Wright, ENT for any worsening symptoms. Monospot obtained and positive. Called patient at 2 PM to make aware of the Monospot results as this had not been resulted by the time she had been discharged from the hospital. I have given her symptomatic treatment instructions and encouraged to follow up with PCP regarding positive test. - Diagnoses Provider Diagnoses: Acute tonsillitis, Mononucleosis Discharge - Discharge Plan Condition: Stable Disposition: HOME Prescriptions: Penicillin VK 500 MG TAB(NF) [Penicillin VK 500 mg Tab(NF)] 500 mg PO BID #20 tab MDD 4 predniSONE TAB* [Deltasone TAB*] 50 mg PO DAILY #5 tab MDD 1 Patient Education Materials: Tonsillitis (ED) Referrals: Juan Manuel Wright MD [Medical Doctor] - No Primary Care Phys,NOPCP [Primary Care Provider] - Additional Instructions: Please follow up with ENT for any worsening symptoms Review begin to have difficulty breathing or worsening difficulty with swallowing, especially your saliva, return to the ED immediately Tylenol 650 mg 3 times daily for any discomfort Prednisone 50 mg once daily in the morning Penicillin twice daily for 10 days for tonsillitis Cepacol tabs for discomfort (there are [id number])
== END 2017-07-27 13:01 | disposition home or self-care (01) ==
LOC: ED 10:31
DX: J03.90 Acute tonsillitis, unspecified (principal); B27.90 Infectious mononucleosis, unspecified without complication; F17.210 Nicotine dependence, cigarettes, uncomplicated
CPT/HCPCS: 36415; 86308; 87502; 87651; 99282

== ENCOUNTER 2017-08-25 17:47 | Emergency (ER) | payer OTHER ==
[2017-08-25] MEDS ORDERED: HYDROcodone/ACETAMIN 5-325 MG* 1 TAB PO PRN (18:35)
[2017-08-25] MEDS ORDERED: HYDROcodone/ACETAMIN 5-325 MG* 1 TAB PO ONE (18:49)
[2017-08-25] MEDS ORDERED: Lidocaine 2.5%/Prilocain 2.5%* 5 GM TUBE ONE (18:55)
[2017-08-25] MEDS ORDERED: Lidocaine 2.5%/Prilocain 2.5%* 5 GM TUBE TOPICAL SCH ×3 (19:00)
[2017-08-25 20:02] VITALS: BP 129/80
--- NOTE | 2017-08-25 22:05 | ED ---
Skin Complaint - HPI Summary HPI Summary: Patient is an otherwise healthy 26-year-old female presenting to the ED with a chief complaint of right axillary abscess 3 weeks. 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 She has been applying warm compresses without effect. The abscess measures approximately 4 cm in diameter, extremely tender and erythematous with slight warmth. There is no surrounding cellulitis. She denies any history of hydradenitis but states she gets abscesses often. Denies any fevers, sweats, chills. She endorses small abscesses to the left axilla which are tender, but very small and under the skin. She denies any other symptoms at this time. - History of Current Complaint Chief Complaint: EDRashSkinAbscess Time Seen by Provider: 08/25/17 18:01 Stated Complaint: CYST Hx Obtained From: Patient Hx Last Menstrual Period: 04/29/17 Onset/Duration: Started Days Ago Skin Exposure Onset/Duration: Days Ago Timing: Constant Onset Severity: Moderate Current Severity: Moderate Pain Intensity: 2 Pain Scale Used: 0-10 Numeric Skin Location: Other: - Right axilla Character: Swelling, Pain, Redness, Raised, Painful Aggravating Symptom(s): Nothing Alleviating Symptom(s): Nothing Associated Signs & Symptoms: Negative - Allergy/Home Medications Allergies/Adverse Reactions: Allergies Allergy/AdvReac Type Severity Reaction Status Date / Time No Known Allergies Allergy Verified 07/27/17 12:15 PMH/Surg Hx/FS Hx/Imm Hx Previously Healthy: Yes Respiratory History: Reports: Hx Asthma Neurological History: Reports: Hx Migraine - during - Surgical History Surgery Procedure, Year, and Place: Tubal Ligation Hx Anesthesia Reactions: No - never had surgery - Immunization History Hx Pertussis Vaccination: No Immunizations Up to Date: Unable to Obtain/Confirm Infectious Disease History: No Infectious Disease History: Denies: Hx Clostridium Difficile, Hx Hepatitis, Hx Human Immunodeficiency Virus (HIV), Hx of Known/Suspected MRSA, Hx Shingles, Hx Tuberculosis, Hx Known/ Suspected VRE, Hx Known/Suspected VRSA, History Other Infectious Disease, Traveled Outside the [place] in Last 30 Days - Family History Known Family History: Positive: Diabetes, Respiratory Disease - ASTHMA, Other - cancer - Social History Occupation: Employed Full-time Lives: With Family Alcohol Use: Occasionally Alcohol Amount: reports one glass wine on weekend Hx Substance Use: No Substance Use Type: Reports: None Hx Tobacco Use: Yes Smoking Status (MU): Light Every Day Tobacco Smoker Type: Cigarettes Amount Used/How Often: reports 2 cigs per week (socially) Review of Systems Constitutional: Negative Negative: Fever, Chills, Fatigue, Skin Diaphoresis Eyes: Negative Cardiovascular: Negative Respiratory: Negative Gastrointestinal: Negative Negative: Abdominal Pain, Vomiting, Diarrhea Genitourinary: Negative Positive: no symptoms reported, see HPI Positive: Other - right axilla 4 cm abscess Neurological: Negative All Other Systems Reviewed And Are Negative: Yes Physical Exam Triage Information Reviewed: Yes Vital Signs On Initial Exam: Initial Vitals Temp Pulse Resp BP Pulse Ox 96.9 F 88 16 120/71 98 08/25/17 17:54 08/25/17 17:54 08/25/17 17:54 08/25/17 17:54 08/25/17 17:54 Vital Signs Reviewed: Yes Appearance: Positive: Well-Appearing, Well-Nourished Skin: Positive: Warm, Skin Color Reflects Adequate Perfusion, Other - 4 cm right axillary abscess Head/Face: Positive: Normal Head/Face Inspection Eyes: Positive: EOMI, JOSÉ LUIS, Conjunctiva Clear Neck: Positive: Supple, No Lymphadenopathy Respiratory/Lung Sounds: Positive: Clear to Auscultation, Breath Sounds Present Cardiovascular: Positive: Normal, RRR, Pulses are Symmetrical in both Upper and Lower Extremities Musculoskeletal: Positive: Normal, Strength/ROM Intact Neurological: Positive: Speech Normal Psychiatric: Positive: Normal, Affect/Mood Appropriate Diagnostics - Vital Signs Vital Signs Temp Pulse Resp BP Pulse Ox 08/25/17 20:01 98.5 F 93 16 129/80 98 08/25/17 17:54 96.9 F 88 16 120/71 98 - Laboratory Lab Statement: Any lab studies that have been ordered have been reviewed, and results considered in the medical decision making process. Course/Dx - Course Course Of Treatment: The abscess measures approximately 4 cm in diameter, extremely tender and erythematous with slight warmth. There is no surrounding cellulitis. This appears to be an infectious folliculitis from shaving the underarms. She could also have an early hydradenitis suppurativa. 2 Girard scan , EMLA applied. I waited 20 minutes. Small 0.5 cm linear incision is made to the total length of the abscess. Wound culture obtained. Copious amount white pus and serosanguineous drainage from the area. Probed the abscess cavity with hemostat to break up any loculations, there was no tracking involve. The area did not require packing. 2 2 x 2's placed with a bandage. Irrigated the abscess cavity copiously with isotonic saline solution. Patient will continue with warm compresses to the area and change the bandage in 24 hours. She will return if she is having any fevers, sweats, chills, other signs of infection or worsening pain despite the pain medication given to her. She understands these precautions and voices no concerns at this time. - Diagnoses Provider Diagnoses: Axillary abscess Discharge - Discharge Plan Condition: Stable Disposition: HOME Prescriptions: Hydrocodone/Acetamin 10/325(NF [Girard 10/325 (NF)] 1 tab PO Q6H #12 tab MDD 4 Sulfamethox/Trimethoprim DS* [Bactrim DS 800/160 TAB*] 1 tab PO BID #14 tab MDD 2 Patient Education Materials: Abscess (ED) Forms: *Work Release Referrals: No Primary Care Phys,NOPCP [Primary Care Provider] - Additional Instructions: Moist compresses to the area several times a day Bactrim twice daily 7 days Ibuprofen for any inflammation and pain For any pain not well controlled with ibuprofen, you may use the hydrocodone for pain relief Change the bandage after 24 hours unless you notice seepage Keep the bandage on 2-3 days Continue with moist compresses 2-3 days I recommend looking into laser hair removal
--- NOTE | 2017-08-27 08:55 | PN ---
Progress Note - Progress Note Date of Service: 08/25/17 Note: MRSA and s. aureus positive on wound culture results. placed on bactrim at discharge. patient does have history of MRSA. will wait for final sensitivity results. no further action required at this time.
== END 2017-08-25 20:01 | disposition home or self-care (01) ==
LOC: ED 17:47
DX: L02.411 Cutaneous abscess of right axilla (principal); B95.62 Methicillin resistant Staphylococcus aureus infection as the cause of diseases classified elsewhere; F17.210 Nicotine dependence, cigarettes, uncomplicated
CPT/HCPCS: 10060; 87070; 87077; 87186; 87205; 87640; 87641; 99282; A9270-GY

== ENCOUNTER 2018-03-06 08:46 | Emergency (ER) | payer OTHER ==
[2018-03-06] MEDS ORDERED: Ketorolac INJ* 60 MG/2 ML VIAL IM ONE (09:14)
--- NOTE | 2018-03-06 09:18 | ED ---
Back Pain - HPI Summary HPI Summary: This patient is a 27 year old MF presenting to [facility] with a chief complaint of left lower back pain since last night. The patient rates the pain 5/10 in severity. Patient reports dysuria and chills last night. Patient denies blood in urine, fever, nausea, vomiting, and vaginal discharge. Patient believes it is a UTI because she has had one before and it feels similar. Her LNMP was 2 weeks ago. She has had a tubal ligation. - History of Current Complaint Chief Complaint: EDUrogenitalProblems Stated Complaint: UTI LIKE SYMPTOMS,RT FLANK PAIN Time Seen by Provider: 03/06/18 09:09 Hx Obtained From: Patient Hx Last Menstrual Period: 04/29/17 Onset/Duration: Sudden Onset, Still Present Onset/Duration: Started Days Ago - Last night Timing: Lasting Hours Back Pain Location: Is Discrete @ - Left lower back Severity Initially: Moderate Severity Currently: Moderate Pain Intensity: 6 Pain Scale Used: 0-10 Numeric Associated Signs And Symptoms: Positive: Other - Dysuria, chills. Denies hematuria, nausea, vomiting, and vaginal discharge.. Negative: Fever - Allergies/Home Medications Allergies/Adverse Reactions: Allergies Allergy/AdvReac Type Severity Reaction Status Date / Time No Known Allergies Allergy Verified 03/06/18 09:05 PMH/Surg Hx/FS Hx/Imm Hx Endocrine/Hematology History: Denies: Hx Diabetes Respiratory History: Reports: Hx Asthma Neurological History: Reports: Hx Migraine - during - Surgical History Surgery Procedure, Year, and Place: Tubal Ligation Hx Anesthesia Reactions: No - never had surgery Infectious Disease History: No Infectious Disease History: Denies: Hx Clostridium Difficile, Hx Hepatitis, Hx Human Immunodeficiency Virus (HIV), Hx of Known/Suspected MRSA, Hx Shingles, Hx Tuberculosis, Hx Known/ Suspected VRE, Hx Known/Suspected VRSA, History Other Infectious Disease, Traveled Outside the [place] in Last 30 Days - Family History Known Family History: Positive: Diabetes, Respiratory Disease - ASTHMA, Other - cancer - Social History Occupation: Employed Full-time Lives: With Family Alcohol Use: Occasionally Alcohol Amount: reports one glass wine on weekend Hx Substance Use: No Substance Use Type: Reports: None Hx Tobacco Use: Yes Smoking Status (MU): Light Every Day Tobacco Smoker Type: Cigarettes Amount Used/How Often: reports 2 cigs per week (socially) Review of Systems Positive: Chills. Negative: Fever Negative: Vomiting, Nausea Positive: dysuria. Negative: hematuria, other - vaginal discharge Positive: Other - Left lower back pain All Other Systems Reviewed And Are Negative: Yes Physical Exam - Summary Physical Exam Summary: GENERAL: Patient is a well-developed and nourished F who is lying comfortable in the stretcher. Patient is not in any acute respiratory distress. HEAD AND FACE: Normocephalic EYES: PERRLA, EOMI x 2. EARS: Hearing grossly intact. MOUTH: Oropharynx within normal limits. NECK: Supple, trachea is midline, no adenopathy, no JVD, no carotid bruit. CHEST: Symmetric, no tenderness at palpation LUNGS: Clear to auscultation bilaterally. No wheezing or crackles. CVS: Regular rate and rhythm, S1 and S2 present, no murmurs or gallops appreciated. ABDOMEN: Soft, non-tender. Bowel sounds are normal. No abdominal abnormal pulsations. MUSCULOSKELETAL: Left CVA tenderness EXTREMITIES: Full ROM in all major joints, no edema, no cyanosis or clubbing. NEURO: Alert and oriented x 3. No acute neurological deficits. Speech is normal and follows commands. SKIN: Dry and warm Triage Information Reviewed: Yes Vital Signs On Initial Exam: Initial Vitals Temp Pulse Resp BP Pulse Ox 96.9 F 77 16 124/73 98 03/06/18 09:02 03/06/18 09:02 03/06/18 09:02 03/06/18 09:02 03/06/18 09:02 Vital Signs Reviewed: Yes Diagnostics - Vital Signs Vital Signs Temp Pulse Resp BP Pulse Ox 03/06/18 09:02 96.9 F 77 16 124/73 98 - Laboratory Result Diagrams: 03/06/18 09:20 03/06/18 09:20 Lab Statement: Any lab studies that have been ordered have been reviewed, and results considered in the medical decision making process. Back Pain Course/Dx - Course Assessment/Plan: This patient is a 27 year old MF presenting to [facility] with a chief complaint of left lower back pain since last night. Her labs are unremarkable, but her urine is consistent for a UTI. She does have 3+ blood in her urine, but I believe it is hemorrhagic cystitis. I did discuss the possibliity of a kidney stone with the patient but is less likely based on presentation. I offered to perform an US to rule out kidney stones. 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 Patient will be sent home on Ciproflaxin. I discussed results with patient and she agrees with this plan. She is hemodynamically stable upon discharge. Strict return precautions given and she will otherwise follow up with her PCP. - Diagnoses Provider Diagnoses: UTI (urinary tract infection) Discharge - Sign-Out/Discharge Documenting (check all that apply): Patient Departure - D/C - Discharge Plan Condition: Stable Disposition: HOME Prescriptions: Ciprofloxacin TAB* [Cipro 500 MG TAB*] 500 mg PO BID #14 tab Ibuprofen 800 mg PO TID #21 tablet Patient Education Materials: Urinary Tract Infection in Women (ED) Referrals: No Primary Care Phys,NOPCP [Primary Care Provider] - 3 Days (Follow up with the [facility] in 3 days. TO FIND US We are located on the 3rd floor of [facility]. Park in the front Visitor Lot and enter at the 1st Floor Entrance. From the [facility] 1st floor visitor lobby or 2nd floor main lobby, follow signs to the [facility]. TO SCHEDULE AN APPOINTMENT ) Additional Instructions: RETURN TO THE EMERGENCY DEPARTMENT FOR CHANGING OR WORSENING SYMPTOMS. - Billing Disposition and Condition Condition: STABLE Disposition: Home - Attestation Statements Document Initiated by Fidelia: Yes Documenting Scribe: Bandar Ross Provider For Whom Fidelia is Documenting (Include Credential): Varghese Wiggins MD Scribe Attestation: Bandar Aguilar, scribed for Varghese Wiggins MD on 03/06/18 at 1841. Scribe Documentation Reviewed: Yes Provider Attestation: The documentation as recorded by the Bandar robins accurately reflects the service I personally performed and the decisions made by me, Varghese Wiggins MD
[2018-03-06 09:37] LABS: ABS Basophils 0 10^3/ul (0-0.2); ABS Eosinophils 0.2 10^3/ul (0-0.6); ABS Lymphocytes 1.6 10^3/ul (1.0-4.8); ABS Monocytes 0.4 10^3/ul (0-0.8); ABS Neutrophils 6.1 10^3/ul (1.5-7.7); ABS Nucleated RBC 0 10^3/ul; Eosinophil % 2.3 % (0-6); Hematocrit 37 % (35-47); Hemoglobin 12.6 g/dl (12.0-16.0); Lymphocyte % 18.9 % (25-47); Mean Corpuscular HGB Conc 34 g/dl (31-36); Mean Corpuscular Hemoglobin 31 pg (27-31); Mean Corpuscular Volume 90 fL (80-97); Mean Platelet Volume 7.6 um3 (7.4-10.4); Nucleated Red Blood Cells % 0.1; Platelet Count 220 10^3/ul (150-450); Red Blood Count 4.13 10^6/ul (4.00-5.40); Red Cell Distribution Width 13 % (10.5-15); White Blood Count 8.3 10^3/ul (3.5-10.8)
[2018-03-06 09:58] LABS: EGFR Non-African American 105.6 (>60)
[2018-03-06 09:59] LABS: Urine Appearance Cloudy; Urine Blood 2+ (Negative); Urine Color Amber; Urine Ketones Negative (Negative); Urine Protein 2+(100 mg/dL) (Negative); Urine Red Blood Cell 3+(>10/hpf) (Absent); Urine Specific Gravity 1.019 (1.010-1.030); Urine Urobilinogen Negative (Negative); Urine White Blood Cell 3+(>20/hpf) (Absent)
[2018-03-06] MEDS ORDERED: Ciprofloxacin TAB* 500 MG PO ONE (11:50)
[2018-03-06 12:15] VITALS: BP 129/69
--- NOTE | 2018-03-08 07:10 | PN ---
Progress Note - Progress Note Date of Service: 03/08/18 Note: urine culture grew Staphylococcus saprophyticus >100,000. patient placed on cipro which should be sensitive to.
== END 2018-03-06 12:13 | disposition home or self-care (01) ==
LOC: ED 08:46
DX: N39.0 Urinary tract infection, site not specified (principal); R30.0 Dysuria; M54.2 Cervicalgia; F17.210 Nicotine dependence, cigarettes, uncomplicated
CPT/HCPCS: 36415; 80053; 81003; 81015; 84702; 85025; 86140; 87077; 87086; 96372; 99282; A9270-GY; J1885

== ENCOUNTER 2018-04-13 19:32 | Emergency (ER) | payer OTHER ==
[2018-04-13] MEDS ORDERED: LORazepam TAB(*) 1 MG PO ONE (20:53)
[2018-04-13] MEDS ORDERED: Lidocaine 2.5%/Prilocain 2.5%* 5 GM TUBE TOPICAL ONE (20:55)
[2018-04-13] MEDS ORDERED: Lidocaine 2.5%/Prilocain 2.5%* 5 GM TUBE ONE (20:57)
[2018-04-13] MEDS ORDERED: Sulfamethox/Trimethoprim DS 800/160* TAB PO ONE (21:35)
[2018-04-13] MEDS ORDERED: HYDROcodone/ACETAMIN 5-325 MG* 1 TAB PO ONE (21:36)
--- NOTE | 2018-04-13 21:37 | ED ---
Skin Complaint - HPI Summary HPI Summary: 27 year old female presents with abscess on her left arm for the past couple days. 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 She denies any fevers. No spreading redness. She states the pain is causing her extreme pain. No drainage from the area. - History of Current Complaint Chief Complaint: EDExtremityUpper Time Seen by Provider: 04/13/18 20:19 Stated Complaint: ABSCESS Hx Last Menstrual Period: 04/29/17 Pain Intensity: 7 - Allergy/Home Medications Allergies/Adverse Reactions: Allergies Allergy/AdvReac Type Severity Reaction Status Date / Time No Known Allergies Allergy Verified 03/06/18 09:05 PMH/Surg Hx/FS Hx/Imm Hx Endocrine/Hematology History: Denies: Hx Diabetes Respiratory History: Reports: Hx Asthma Neurological History: Reports: Hx Migraine - during - Surgical History Surgery Procedure, Year, and Place: Tubal Ligation Hx Anesthesia Reactions: No - never had surgery - Immunization History Immunizations Up to Date: Yes Infectious Disease History: Yes Infectious Disease History: Denies: Hx Clostridium Difficile, Hx Hepatitis, Hx Human Immunodeficiency Virus (HIV), Hx of Known/Suspected MRSA, Hx Shingles, Hx Tuberculosis, Hx Known/ Suspected VRE, Hx Known/Suspected VRSA, History Other Infectious Disease, Traveled Outside the [place] in Last 30 Days - Family History Known Family History: Positive: Diabetes, Respiratory Disease - ASTHMA, Other - cancer - Social History Alcohol Use: Occasionally Alcohol Amount: reports one glass wine on weekend Hx Substance Use: No Substance Use Type: Reports: None Hx Tobacco Use: Yes Smoking Status (MU): Light Every Day Tobacco Smoker Type: Cigarettes Amount Used/How Often: reports 2 cigs per week (socially) Review of Systems Negative: Fever Negative: Chest Pain Negative: Shortness Of Breath Positive: Other - abscess left arm All Other Systems Reviewed And Are Negative: Yes Physical Exam Triage Information Reviewed: Yes Vital Signs On Initial Exam: Initial Vitals Temp Pulse Resp BP Pulse Ox 97.8 F 91 18 136/90 100 04/13/18 19:34 04/13/18 19:34 04/13/18 19:34 04/13/18 19:34 04/13/18 19:34 Vital Signs Reviewed: Yes Appearance: Positive: Well-Appearing Skin: Positive: Warm, Dry, Other - 3cm by 2cm absces left underarm Head/Face: Positive: Normal Head/Face Inspection Eyes: Positive: Normal, Conjunctiva Clear ENT: Positive: Pharynx normal Respiratory/Lung Sounds: Positive: Clear to Auscultation, Breath Sounds Present Cardiovascular: Positive: Normal, RRR Musculoskeletal: Positive: Normal Neurological: Positive: Normal Psychiatric: Positive: Normal Procedures - Incision and Drainage left axillary Site: left axillary Anesthesia: Local Instrument(s): Scalpel Diagnostics - Vital Signs Vital Signs Temp Pulse Resp BP Pulse Ox 04/13/18 21:00 17 04/13/18 19:34 97.8 F 91 18 136/90 100 - Laboratory Lab Statement: Any lab studies that have been ordered have been reviewed, and results considered in the medical decision making process. Course/Dx - Course Course Of Treatment: 27 year old female presents with abscess on her left arm for the past couple days. 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 She denies any fevers. No spreading redness. She states the pain is causing her extreme pain. No drainage from the area. On exam has a 2 cm by 3cm abscess on left arm. No evidence cellulitis. Applied topical numbing and local anesthesia. Patient is extremely anxious so gave Ativan. Placed 1 cm laceration in the wound and got 2 cc of copious drainage. Told to continue place heat on the area. We'll place on Bactrim. Patient understands agrees with plan. - Differential Diagnoses - Skin Complaint Differential Diagnoses: Abscess, Cellulitis, Contact Dermatitis - Diagnoses Provider Diagnoses: Abscess of left arm Discharge - Sign-Out/Discharge Documenting (check all that apply): Patient Departure - Discharge Plan Condition: Good Disposition: HOME Prescriptions: Sulfamethox/Trimethoprim DS* [Bactrim DS 800/160 TAB*] 1 tab PO BID #19 tab Patient Education Materials: Abscess (ED) Forms: *Work Release Referrals: [facility] [place] PHYSICIAN REFERRAL [Outside] Pema LOAIZA,Andre Rodriguez [Medical Doctor] - Additional Instructions: Take antibiotic twice a day for 10 days, first dose given in ED Apply warm compresses to area Take ibuprofen or Tylenol for pain every 6 hours Follow up with urgent care within 3 days for wound check Return to ED if develop fever, area of redness spreads, or any new or worsening symptoms - Billing Disposition and Condition Condition: GOOD Disposition: Home
[2018-04-13 22:07] VITALS: BP 116/78
--- NOTE | 2018-04-14 09:10 | ED ---
Progress - Progress Note Progress Note: Pt's wound cx reveals MRSA and Staph. She was started on bactrim to which organisms should effective. Final results pending. Course/Dx - Course Course Of Treatment: 27 year old female presents with abscess on her left arm for the past couple days. 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 She denies any fevers. No spreading redness. She states the pain is causing her extreme pain. No drainage from the area. On exam has a 2 cm by 3cm abscess on left arm. No evidence cellulitis. Applied topical numbing and local anesthesia. Patient is extremely anxious so gave Ativan. Placed 1 cm laceration in the wound and got 2 cc of copious drainage. Told to continue place heat on the area. We'll place on Bactrim. Patient understands agrees with plan. - Diagnoses Provider Diagnoses: Abscess of left arm Discharge - Sign-Out/Discharge Documenting (check all that apply): Post-Discharge Follow Up - Discharge Plan Condition: Good Disposition: HOME Prescriptions: Sulfamethox/Trimethoprim DS* [Bactrim DS 800/160 TAB*] 1 tab PO BID #19 tab Patient Education Materials: Abscess (ED) Forms: *Work Release Referrals: [facility] [place] [facility]IAN REFERRAL [Outside] Pema LOAIZA,Andre Rodriguez [Medical Doctor] - Additional Instructions: Take antibiotic twice a day for 10 days, first dose given in ED Apply warm compresses to area Take ibuprofen or Tylenol for pain every 6 hours Follow up with urgent care within 3 days for wound check Return to ED if develop fever, area of redness spreads, or any new or worsening symptoms - Billing Disposition and Condition Condition: GOOD Disposition: Home
== END 2018-04-13 22:04 | disposition home or self-care (01) ==
LOC: ED 19:32
DX: L02.414 Cutaneous abscess of left upper limb (principal); F17.210 Nicotine dependence, cigarettes, uncomplicated
CPT/HCPCS: 10060; 87070; 87077; 87186; 87205; 87640; 87641; 99282; A9270-GY

== ENCOUNTER 2019-07-01 21:03 | Emergency (ER) | payer OTHER ==
[2019-07-01] MEDS ORDERED: Tetan/Diph/Pertus SYR(Tdap)* 0.5 ML SYR(BOOSTRIX) use SYR contains LATEX IM ONE (22:40)
[2019-07-01] MEDS ORDERED: DOXYcycline CAP(*) 100 MG PO ONE (22:49)
--- NOTE | 2019-07-01 22:51 | ED ---
Laceration/Wound HPI - HPI Summary HPI Summary: 28-year-old male presents with right foot injury yesterday. She states that she stepped on the metal part of her dog gate. She states that went into her foot. She states that she cleaned the area out and then placed toilet paper on it. . She does have a history of MRSA. She states it did not have on her shoes or socks. She was barefoot at the time. States her tetanus is not up-to- date. States she has no medical conditions. denies any foreign body in the wound. - History of Current Complaint Stated Complaint: R FOOT INJURY PER PT Time Seen by Provider: 07/01/19 22:30 Hx Last Menstrual Period: 04/29/17 Pain Intensity: 8 - Allergy/Home Medications Allergies/Adverse Reactions: Allergies Allergy/AdvReac Type Severity Reaction Status Date / Time No Known Allergies Allergy Verified 07/01/19 21:19 PMH/Surg Hx/FS Hx/Imm Hx Endocrine/Hematology History: Denies: Hx Diabetes Respiratory History: Reports: Hx Asthma Neurological History: Reports: Hx Migraine - during - Surgical History Surgery Procedure, Year, and Place: Tubal Ligation Hx Anesthesia Reactions: No - never had surgery Infectious Disease History: Yes Infectious Disease History: Denies: Hx Clostridium Difficile, Hx Hepatitis, Hx Human Immunodeficiency Virus (HIV), Hx of Known/Suspected MRSA, Hx Shingles, Hx Tuberculosis, Hx Known/ Suspected VRE, Hx Known/Suspected VRSA, History Other Infectious Disease, Traveled Outside the in Last 30 Days - Family History Known Family History: Positive: Diabetes, Respiratory Disease - ASTHMA, Other - cancer - Social History Alcohol Use: Occasionally Alcohol Amount: reports one glass wine on weekend Hx Substance Use: No Substance Use Type: Reports: None Hx Tobacco Use: Yes Smoking Status (MU): Light Every Day Tobacco Smoker Type: Cigarettes Amount Used/How Often: reports 2 cigs per week (socially) Review of Systems Negative: Fever Negative: Chest Pain Negative: Shortness Of Breath Positive: Other - pucture wound to right foot All Other Systems Reviewed And Are Negative: Yes Physical Exam Triage Information Reviewed: Yes Vital Signs On Initial Exam: Initial Vitals Temp Pulse Resp BP Pulse Ox 98.2 F 87 15 122/74 98 07/01/19 21:16 07/01/19 21:16 07/01/19 21:16 07/01/19 21:16 07/01/19 21:16 Vital Signs Reviewed: Yes Appearance: Positive: Well-Appearing Skin: Positive: Warm, Dry, Other - puncture wound to right foot, no erythema Head/Face: Positive: Normal Head/Face Inspection Eyes: Positive: Normal, Conjunctiva Clear ENT: Positive: Pharynx normal Respiratory/Lung Sounds: Positive: Clear to Auscultation, Breath Sounds Present Cardiovascular: Positive: Normal, RRR Musculoskeletal: Positive: Strength/ROM Intact - right foot, Other - capillary refill<2secs Neurological: Positive: Normal Psychiatric: Positive: Normal Procedures - Sedation Patient Received Moderate/Deep Sedation with Procedure: No Diagnostics - Vital Signs Vital Signs Temp Pulse Resp BP Pulse Ox 07/01/19 21:16 98.2 F 87 15 122/74 98 - Laboratory Lab Statement: Any lab studies that have been ordered have been reviewed, and results considered in the medical decision making process. Laceration Repair Course/Dx - Course Course Of Treatment: 28-year-old male presents with right foot injury yesterday. She states that she stepped on the metal part of her dog gate. She states that went into her foot. She states that she cleaned the area out and then placed toilet paper on it. . She does have a history of MRSA. She states it did not have on her shoes or socks. She was barefoot at the time. States her tetanus is not up-to-date. States she has no medical conditions. On exam has puncture wound noted to right foot. No signs of infection. As patient has a history of MRSA we'll place on prophylactic dose doxycycline. Gave tetanus. toldwash area with soap and water and watch for any signs of recent infection. Patient understands agrees with plan. - Differential Dx Differental Diagnoses: Abrasion, Laceration, Puncture Wound - Clinical Impression Provider Diagnoses: Puncture wound of right foot Discharge ED - Sign-Out/Discharge Documenting (check all that apply): Patient Departure - Discharge Plan Condition: Good Disposition: HOME Prescriptions: DOXYcycline CAP(*) [DOXYcycline 100MG CAP(*)] 100 mg PO BID #5 cap Patient Education Materials: Puncture Wound (ED) Forms: *Work Release Referrals: [facility] PHYSICIAN REFERRAL [Outside] Additional Instructions: take doxycyline twice a day for 3 days wash area with soap and water apply neosporin and bandage establish care with primary Return to ED if develop any new or worsening symptoms - Billing Disposition and Condition Condition: GOOD Disposition: Home
[2019-07-01 23:28] VITALS: BP 122/77
== END 2019-07-01 23:25 | disposition home or self-care (01) ==
LOC: ED 21:03
DX: S91.331A Puncture wound without foreign body, right foot, initial encounter (principal); W22.8XXA Striking against or struck by other objects, initial encounter; Y92.9 Unspecified place or not applicable; Z86.14 Personal history of Methicillin resistant Staphylococcus aureus infection
CPT/HCPCS: 90471; 90715; 99282; A9270-GY

== ENCOUNTER 2019-08-05 09:46 | Emergency (ER) | payer OTHER ==
[2019-08-05 10:04] VITALS: BP 118/74
== END 2019-08-05 11:25 | disposition left against medical advice (07) ==
LOC: ED 09:46
DX: Z53.21 Procedure and treatment not carried out due to patient leaving prior to being seen by health care provider (principal); M79.644 Pain in right finger(s)
CPT/HCPCS: 99282